=== PATIENT | male | born 1980 | race Caucasian/White ===

== ENCOUNTER 2017-06-28 08:51 | Emergency (ER) | payer BC ==
[~2017-06-28] VITALS: Ht 172.7 cm; Wt 81.6 kg
[2017-06-28 09:20] VITALS: BP_SYST 127
[2017-06-28] MEDS ORDERED: DIPHENHYDRAMINE HCL 25 MG CAPSULE PO ONE (09:45)
[2017-06-28] MEDS ORDERED: KETOROLAC TROMETHAMINE 60 MG/2 ML VIAL IM ONE (09:45)
[2017-06-28] MEDS ORDERED: MORPHINE 4 MG/ML INJ. SYRINGE IM ONE (10:45)
[2017-06-28 11:04] VITALS: BP_SYST 124
== END 2017-06-28 11:04 | disposition home or self-care (01) ==
LOC: SED 08:51
DX: R51 Headache (principal)
CPT/HCPCS: 96372; 99283; J1885; Q0163; J2270